=== PATIENT | female | born 2000 | race Two or more races ===

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

== ENCOUNTER 2020-02-15 18:22 | Emergency (ER) | payer SELFPAY ==
[~2020-02-15] VITALS: Ht 165.1 cm; Wt 86.3 kg
[~2020-02-15 18:22] MED LIST changes: +BENZ100C PO; +PRED50TA PO; +VENTOLIN HFA18 GM INH
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
[2020-02-15] MEDS ORDERED: CYCL10TA2 PO (20:10)
[2020-02-15] MEDS ORDERED: NAPR-683 PO (20:10)
[2020-02-15] MEDS: HYDROcodone/APAP 5/325MG 1 TAB TABLET PO ONE (20:10)
[2020-02-15 20:11] VITALS: BP 129/70
== END 2020-02-15 20:21 | disposition home or self-care (01) ==
LOC: ER 18:22
DX: S16.1XXA Strain of muscle, fascia and tendon at neck level, initial encounter (principal); S29.012A Strain of muscle and tendon of back wall of thorax, initial encounter; S60.10XA Contusion of unspecified finger with damage to nail, initial encounter; V49.9XXA Car occupant (driver) (passenger) injured in unspecified traffic accident, initial encounter; Y93.89 Activity, other specified; Y92.413 State road as the place of occurrence of the external cause; Y99.8 Other external cause status
CPT/HCPCS: 70450; 71045; 72125; 72128; 72131; 73140; 81025; 99285